=== PATIENT | female | born 1980 ===

== ENCOUNTER 2025-07-23 13:04 | Inpatient (IN) | payer OTHER ==
[~2025-07-23] VITALS: Ht 162.6 cm; Wt 77.3 kg
[2025-07-23 19:53] VITALS: BP 129/89
[2025-07-23] MEDS ORDERED: Polyethylene Glycol 3350 17 gm PO PRN (20:35)
[2025-07-23] MEDS ORDERED: Ondansetron 4 MG SoluTab MM PRN (20:35)
[2025-07-23] MEDS ORDERED: Aluminum Hydroxide 320MG/5ML 473 ML PO PRN (20:40)
[2025-07-23 22:25] VITALS: BP 129/89
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
[2025-07-23] MEDS ORDERED: CEPH500 PO (23:11)
[2025-07-23] MEDS ORDERED: PYRI60 PO (23:11)
[2025-07-23] MEDS ORDERED: PROG100 PO (23:17)
[2025-07-23] MEDS ORDERED: CLIMARA1 EACH TOP (23:17)
--- NOTE | 2025-07-24 04:08 | NUR ---
END OF SHIFT UPDATE ASSUMED CARE OF PT AT 2330. NO ACUTE CHANGES. PT HAS REMAINED IN BED THROUGHOUT THE NIGHT. Q15 MINUTE CHECKS TO CONTINUE PER PT SAFETY.
[2025-07-24 08:00] LABS: CHOL/HDL RATIO 3.2; Cholesterol 173 mg/dL (50-200); HDL Cholesterol 54 mg/dL (>39); LDL/HDL RATIO 1.6; Low Density Lipoprotein Chol 84 mg/dL (0-110); Triglycerides 175 mg/dL (30-160); Very Low Density Lipoprot Chol 35 mg/dL (6-32)
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
[2025-07-24] MEDS ORDERED: Multivitamins 1 Tab PO SCH (09:00)
[2025-07-24 09:26] VITALS: BP 132/81
[2025-07-24] MEDS ORDERED: Estradiol 0.025 MG/24 Patch TOP SCH (18:00)
--- NOTE | 2025-07-24 18:14 | NUR ---
Summary- Patient denies HI,SI, hallucination. She does have low anxiety and depression. A medical consult was called to evaluate the patient. Medical providers came to U to evaluate. Hormones estrogen and progesterone starting 07.25.25. See Consult note. Patient is being treated for a UTI. Provider thinks this is likely part of the cause of mental health exacerbation. She is hoping for a short stay. Patient participated in groups and is active on the unit. Patient has been pleasant and cooperative with safe behaviors this shift.
[2025-07-24 19:34] VITALS: BP 115/71
--- NOTE | 2025-07-24 20:15 | NUR ---
ESTRADIOL PATCH PLACED TO RIGHT ABD AREA PER PATIENT REQUEST
--- NOTE | 2025-07-25 04:19 | NUR ---
SHIFT SUMMARY PATIENT UP IN MILIEU VISITING WITH STAFF AND PEERS. DENIES SI, HI, OR AVH. PATIENT VERBALIZED THAT SHE HAD A GOOD DAY TODAY AND APPRECIATED THE GROUP ACTIVITY AND SOCIALIZING WITH OTHERS ON THE UNIT. VERBALIZED THAT SHE IS FEELING READY TO GO HOME AND APPEARS KNOWLEDGEABLE REGARDING HER MEDICATIONS. ESTRADIOL PATCH PLACED TO RIGHT LOWER ABD PER PATIENT REQUEST. AMOXICILLIN STARTED ORDERED. PATIENT REQUEST TRAZODONE AND MELATONIN FOR SLEEP AID TONIGHT. PATIENT APPEARS TO BE SLEEPING WELL T/O NIGHT RESP EVEN AND UNLABORED. CONTINUE TO MONITOR Q15MIN.
[2025-07-25 07:45] LABS: BASOPHILS ABSOLUTE AUTO 0.07 K/mm3 (0.00-0.23); BASOPHILS PERCENT AUTO 1 % (0-2); EOSINOPHILS ABSOLUTE AUTO 0.28 K/mm3 (0.00-0.68); EOSINOPHILS PERCENT AUTO 4 % (0-6); Hematocrit 39.8 % (33.0-51.0); Hemoglobin 13.4 g/dL (11.5-16.0); IMMATURE GRAN ABSOLUTE AUTO 0.02 K/mm3 (0.00-0.10); IMMATURE GRAN PERCENT AUTO 0 % (0-1); LYMPHOCYTES ABSOLUTE AUTO 2.03 K/mm3 (0.84-5.20); LYMPHOCYTES PERCENT AUTO 27 % (21-46); MONOCYTES ABSOLUTE AUTO 0.65 K/mm3 (0.16-1.47); MONOCYTES PERCENT AUTO 9 % (4-13); Mean Corpuscular HGB Conc 33.7 g/dL (31.5-36.5); Mean Corpuscular Volume 95 fL (80-100); NEUTROPHILS ABSOLUTE AUTO 4.37 K/mm3 (1.96-9.15); NEUTROPHILS PERCENT AUTO 59 % (41-73); NRBC ABSOLUTE 0.00 K/mm3 (0.00-0.02); NRBC Auto 0.0 /100 WBC (0.0-0.2); Platelet Count 331 K/mm3 (150-400); RDW Coefficient Variation 12.6 % (11.7-14.2); RDW Standard Deviation 44.5 fL (35.1-46.3)
[2025-07-25 08:03] LABS: Alanine Aminotransfer (ALT/SGP 33.0 U/L (12-78); Albumin, Blood 3.9 g/dL (3.4-5.0); Albumin/Globulin Ratio 1.0 (0.8-1.8); Anion Gap 10.0 mmol/L (3-11); Aspartate Aminotrans (AST/SGOT 16.0 U/L (12-37); Bilirubin, Total 0.4 mg/dL (0.1-1.0); Blood Urea Nitrogen 12.0 mg/dL (8-24); CO2, Blood 25.0 mmol/L (21-32); Calcium, Blood 9.2 mg/dL (8.5-10.1); Chloride, Blood 107.0 mmol/L (98-108); Creatinine, Blood 0.66 mg/dL (0.40-1.00); Globulin, Blood 3.8 g/dL (2.2-4.0); Glucose, Blood 119.0 mg/dL (70-99); Potassium, Blood 3.7 mmol/L (3.5-5.5); Sodium, Blood 138.0 mmol/L (136-145); Total Protein, Blood 7.7 g/dL (6.4-8.2)
[2025-07-25] MEDS ORDERED: Lactobacil 2-S.Thermo-Bifido 1 1 Cap PO SCH (09:00)
[2025-07-25 09:13] VITALS: BP 125/76
--- NOTE | 2025-07-25 12:30 | NUR ---
Patient describes her mood as good to great. She has no anxiety. She states she slept well. She does endorse generalized body aches, and believes they are related to her MG. She also questions if she has RA. Pateint denies SI, HI, and hallucination. She states that she would like more labs, such as a vitamin level and other hormone levels. She said that she has had hematochromatosis, but also that she has been anemic. HGB is good today. Patient has also of writing on her group sheets. She has been dancing in the hallways and singing loudly with headphones on, at times disturbing other peers that are in the same room with her. Patient is redirectable. She is currently with the mh provider and a medical provider just came back to follow up from yesterday.
--- NOTE | 2025-07-25 16:37 | NUR ---
SUMMARY- PLEASE SEE PREVIOUS NOTE EARLIER THIS SHIFT WELL. PATIENT HAS NOT ENDORSED ANY SI, HI, AH,VH. SHE HAS BEEN IN AN ELEVATED MOOD THIS SHIFT. SHE DID REQUEST IMODIUM FOR DIARRHEA AND AND ORDER WAS PLACED. THE PATIENT STARTED A PROBIOTIC TODAY. PATIENT CONTINUES TO BELIEVE THAT HER MH ISSUE WAS DUE TO HER UTI, HOWEVER SHE IS DISPLAYING SOME ACTIONS THAT APPEAR MANIC. DANCING, SINGING LOUDLY DURING GROUP, GROUP SHEET WITH EXCESSIVE WRITING ALL OVER THE SHEET ETC. PATIENT IS WAITING TO TALK WITH THE PROVIDER TOMORROW. SHE WOULD LIKE TO LEAVE EARLIER THAN HER HOLD, HOWEVER SHE IS STILL ON THE HOLD AND THE PROVIDER WILL REVIEW THE NEED DAILY.
--- NOTE | 2025-07-25 17:17 | NUR ---
PRE-COMMITTMENT MANNEQUIN COLORING ARTIST [facility] [phone] OFFICE [phone] FAX [phone]
[2025-07-25 19:42] VITALS: BP 150/73
--- NOTE | 2025-07-26 03:40 | NUR ---
SHIFT SUMMARY PATIENT UP IN MILIEU VISITING WITH STAFF AND PEERS. AT TIMES PACING IN UMANZOR LISTENING TO HEADPHONES. VERBALIZED THAT SHE IS FEELING "STABLE" DENIES SI, HI, OR AVH. PATIENT CONTINUES TO HAVE LOOSE BROWN STOOL, SECOND DOSE OF IMODIUM GIVEN WITH GOOD RESULTS. PATIENT REQUEST TRAZODONE AND MELATONIN TO HELP HER SLEEP TONIGHT. PATIENT AWAKE AT 0100 RESTLESS IN HER ROOM. AT 0200 CONTINUES TO BE RESTLESS GIVING SELF A SPONGE BATH, C/O GENERALIZED PAIN TYLENOL AND SECOND TRAZODONE GIVEN. 0320 PATIENT UP TO NURSES DESK C/O FEELING NOSE IS STUFF AND RESTLESS HYDROXYZINE GIVEN. PATIENT NOW RESTING QUIETLY IN BED. CONTINUE TO MONITOR Q15MIN
[2025-07-26 09:24] VITALS: BP 133/76
--- NOTE | 2025-07-26 09:56 | NUR ---
Patient is not having SI, HI, A/VH. Patient appears to be showing symptoms of sridhar, rapid excessive speech and busyness. There have been no adverse advents so far this shift. transfering care to Kayce JENSEN at this time.
--- NOTE | 2025-07-26 11:56 | NUR ---
SPOKE TO PT ABOUT MEDICATIONS, PT PREFERS TO WORK WITH HER ESTABLISHED PROVIDERS TO GET HER HORMONAL LEVELS CORRECTED, SHE WANTS TO COMPLETE HER ANTIBIOTICS AND THEN SHE WILL CONSIDER MEDICATION FOR MOOD. SHE PREFERS TO DO THIS SLOWLY AND AT THE DISCRETION OF THE PROVIDERS SHE ALREADY SEES. PT IS MAKING SOME LIFESTYLE CHANGES WELL OTHER LIFESTYLE DECISIONS. SHE REPORTS SHE IS WELL ESTABLISHED WITH HER COUNSELOR AND WILL BE SEEING THEM WEEKLY, SHE HAS A STRONG SUPPORT SYSTEM WITH PEERS, FRIENDS AND FAMILY. SHE ADAMANTLY DENIES ANY SI/HI, DOES NOT APPEAR TO BE RESPONDING TO INTERNAL STIMULI.
--- NOTE | 2025-07-26 17:27 | NUR ---
EXTENSIVE EDUCATION PROVIDED TO PATIENT REGARDING MENTAL HEALTH DX AND STIGMA. EDUCATED ON BIPOLAR SYMPTOMS AND MEDICATIONS. SHE HAS AGREED TO A TRIAL OF LITHIUM
--- NOTE | 2025-07-26 18:00 | NUR ---
ASSUMED PT CARE @1500 FROM NAZIA JENSEN. NO CLINICAL CHANGES NOTED
[2025-07-26 19:19] VITALS: BP 127/76
--- NOTE | 2025-07-27 04:22 | NUR ---
SHIFT SUMMARY: PATIENT WAS IN THE MILIEU AT THE BEGINNING OF THE SHIFT, INTERACTING PLEASANTLY WITH STAFF AND PEERS. SHE WAS ABLE TO ANSWER PLATFORM SOFTWARE ENGINEER QUESTIONS IN A LOGICAL AND LINEAR MANNER. SHE STATED THAT SHE HAS "NEVER BEEN SUICIDAL", AND HAS NO THOUGHTS OF SELF HARMING OR ANY A/V/T HALLUCINATIONS. SHE STATED, "THAT'S NOT REALLY WHY I'M HERE. I JUST SORT OF IMPLODED AND WAS WHIRLING AROUND, FALLING APART." SHE STATED, "IT'S GREAT HERE. I'M LEARNING SO MUCH. I REALLY ENJOY THE GROUPS." SHE PARTICIPATED IN SNACK AND WRAP UP GROUP AT 2030 IN THE DINING AREA, AND WAS COMPLIANT WITH EVENING MEDICATIONS. SHE REQUESTED TRAZODONE AND MELATONIN FOR SLEEP, WHICH WERE GIVEN, WITH DR PERMISSION. SHE GOT UP AT 0120 AND REQUESTED TYLENOL FOR BACK PAIN THAT RADIATED TO HIPS AND LEGS, WHICH WAS EFFECTIVE. SHE ALSO REQUESTED VISTARIL FOR ANXIETY AND "SPINNING THOUGHTS" WHICH WAS EFFECTIVE. SHE WENT BACK TO BED FOR A COUPLE OF HOURS BUT WAS UP FOR GOOD BY THREE. SHE WAS IN THE HALLWAY READING AND WRITING IN HER JOURNAL, BUT BECAME A LITTLE LOUD FOR NIGHTTIME, SO SAT IN THE SENSORY ROOM WITH THE HEADPHONES. SHE WAS PLEASANT AND ABLE TO MAKE NEEDS KNOWN. SHE WAS INTERESTED IN THE LITERATURE PROVIDED REGARDING HER NEW MEDICATION, LITHIUM, AND THE POSSIBLE WAYS IT COULD HELP HER. SHE STATED THAT SHE WOULD "JOURNAL WHAT I WANT TO TELL THE DOCTOR". CONTINUING TO MONITOR FOR SAFETY WITH Q15 MINUTE CHECKS.
[2025-07-27 08:38] VITALS: BP 139/81
--- NOTE | 2025-07-27 14:06 | NUR ---
SHIFT ASSESSMENT: PT DENIED SI, HI AND AVH. PT REPORTED ANXIETY 4/10w AND BACK PAIN 6/10w. HER MOOD WAS DESCRIBED , "GOOD...IN THE MIDDLE." PT CAN BE INTRUSIVE IN CONVERSATION, SHE VERBALIZES AT GREAT LENGTH ABOUT HER ISSUES. SHE IS ACTIVE IN GROUPS AND THE PT MILIEU. PT IS PLEASANT THO AND COOPERATIVE WITH CARE.
--- NOTE | 2025-07-27 18:04 | NUR ---
PT RECEIVED ZOFRAN 4MG AT 0715 FOR NAUSEA, IT WAS EFFECTIVE. SHE WAS GIVEN ADVIL 600MG AT 0928 FOR 6/10 PAIN AND THEN TYLENOL 650MG AT 1451 THEY WERE EFFECTIVE. PT HAS BEEN ACTIVE IN THE PT MILIEU AND HAS ATTENDED GROUPS.
[2025-07-27 19:24] VITALS: BP 128/74
--- NOTE | 2025-07-28 05:49 | NUR ---
SHIFT SUMMARY Pt is A&O, calm, cooperative, eye contact is appropriate. Pt states her mood is "decompression from my visit with ," affect elevated. Pt denies SI, HI, and hallucinations. Pt is hyperverbal, giving long, drawn out answers to simple questions and displaying tangential thinking. Pt requested PRN trazodone and melatonin for sleep with her HS medications and retired to her room at 2130. At about 0220 pt approached the nurse station and requested additional trazodone for sleep, hydroxyzine for MASS score 3, and APAP for bilateral leg pain 4/10w. Pt returned to her room after receiving her PRNs. Pt was back up to the nurse station about 0400 and requested to sit in the sensory room to read. Staff continues to monitor q15m for safety and wellness.
[2025-07-28 09:18] VITALS: BP 124/66
--- NOTE | 2025-07-28 17:02 | NUR ---
SHIFT SUMMARY PT A/O X4; PLEASANT AND COOPERATIVE WITH CARE. SHE DENIES SI, HI, AND HALLUCINATIONS. HER AFFECT IS ELEVATED AND HER SPEECH IS SOMEWHAT TANGENTIAL. PT SEEMS UNCOMFORTABLE WITH BIPOLAR DIAGNOSIS AND REQUESTED INFORMATION ON AUTISM AND ADHD. PT ALSO REPORTED SINUS CONGESTION FROM ALLERGIES AND REQUESTED ALLERGY MEDICATION. PT REPORTS DROWSINESS AFTER ALLERGY MEDICATION AND IS CURRENTLY ASLEEP IN HER ROOM. SHE ATTENDED ALL GROUPS AND MEALS.
[2025-07-28 19:25] VITALS: BP 118/65
--- NOTE | 2025-07-29 06:25 | NUR ---
SHIFT SUMMARY Pt is A&O, calm, cooperative, eye contact is appropriate. Pt states her mood is good, tired, affect constricted. Pt denies SI, HI, and hallucinations. Pt is hyperverbal, tangential, needy. Pt had generalized pain earlier in the day, which had resolved at time of assessment, but stated that she would like to take PRN ibuprofen before bed. Pt also requested PRN trazodone and melatonin for sleep. Staff continues to monitor q15m for safety and wellness.
--- NOTE | 2025-07-29 18:13 | NUR ---
SHIFT SUMMARY PT A/O X4; PLEASANT AND COOPERATIVE WITH CARE. SHE DENIES SI, HI, HALLUCINATIONS. HER AFFECT IS CALMER TODAY AND HER SPEECH IS LESS PRESSURED. SHE HAS ALSO HAD SOME BETTER BOUNDARIES TODAY. SHE DID TRY TO EXERCISE IN THE UMANZOR BUT NOT IN EXCESS OR AT INAPPROPRIATE TIMES. SHE IS SOMEWHAT CONCERNED ABOUT DISCHARGE AND WANTS TO MAYBE GO TO "[facility]". ADVISED PT TO SPEAK WITH DC TELEVISION INSPECTOR IN THE AM.
[2025-07-29 20:43] VITALS: BP 131/83
--- NOTE | 2025-07-30 05:57 | NUR ---
SHIFT SUMMARY Pt is A&O, calm, cooperative, eye contact is appropriate. Pt states her mood is good, affect is constricted. Pt denies SI, HI, and hallucinations. Pt reported bilateral hip pain 4/10w and requested PRN ibuprofen before retiring to bed. Pt also requested PRN trazodone and melatonin for sleep. Staff continues to monitor q15m for safety and wellness.
[2025-07-30 09:36] VITALS: BP 122/57
--- NOTE | 2025-07-30 18:16 | NUR ---
SHIFT SUMMARY PT WAS PLEASANT AND ENDORSED FEELINGS OF EXCITEMENT TO POSSIBLY D/C SOON. SHE DENIES SI/HI AND ALL HAULLUCINATIONS. SHE SPEAKS HYPERVERBALLY BUT CLEAR. SHE WROTE OVER THE ENTIRE COMMUNITY WORKSEET, NOT ALL THINGS RELATED TO THE QUESTIONS. SHE WAS COOPERATIVE WITH ALL MEDICATIONS. SHE WAS GIVEN ONE IBUPROFEN FOR 6/10 LOW BACK PAIN. SHE ATTENDED GROUPS AND WAS ACTIVE IN THE MILIEU. PT INTERACTED WELL WITH OTHER PATIENTS. SHE CALLED HER THIS AM AND HAD HIM CONTACT HER [facility] AND CANCEL HER APPOINTMENT THAT WAS FOR TODAY.
[2025-07-30 21:03] VITALS: BP 140/79
--- NOTE | 2025-07-31 06:02 | NUR ---
SHIFT SUMMARY Pt is A&O, calm, cooperative, eye contact is appropriate. Pt states her mood is good, affect is euthymic, congruent to report. Pt denies SI, HI, and hallucinations. Pt is looking forward to discharge tomorrow afternoon and looking forward to getting back to her job. 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 Pt reported bilateral hip pain 4/10w and requested PRN ibuprofen before retiring to bed. Pt also requested PRN trazodone and melatonin for sleep. Staff continues to monitor q15m for safety and wellness.
[2025-07-31 07:27] VITALS: BP 109/63
[2025-07-31 07:55] LABS: Lithium 0.37 mmol/L (0.60-1.20)
--- NOTE | 2025-07-31 11:27 | NUR ---
IMPORTANT DISCHARGE INFORMATION PATIENT TO BE DISCHARGED TODAY. HER SPOUSE IS COMING (KAEL) TO PICK HER UP AROUND 2PM. HIS PHONE NUMBER IS . ALL PARTIES VERBALIZE AN UNDERSTANDING. PATIENT HAS FOLLOW UP WITH DR. MAGAÑA ON 08/02/25 AT 1:30PM FOLLOW UP WITH [facility]. PHARMACY: [facility] FAX
[2025-07-31] MEDS ORDERED: Lithium Carbon450 MG PO (12:32)
--- NOTE | 2025-07-31 14:12 | NUR ---
NURSING DISCHARGE NOTE PT AA&0 TO PERSON, PLACE, TIME, AND SITUATION. SHE REPORTS MOOD EXCITED TO GO HOME. SPEECH IS PRESSURED AND IT IS HARD TO KEEP HER ON TOPIC. PT EDUCATED THAT LITHIUM IS NOT AT A THERAPUTIC LEVEL AND THAT SHE WILL NEED TO MAKE HER FOLLOW UP APPT FOR NEW LEVEL AND TITRATION. SHE VERBALIZED UNDERSTANDING. UPCOMING APPTS, DISCHARGE MEDICATIONS, AND HOW TO ACCESS MEDICAL RECORDS REVIEWED.. SHE DENIED ANY QUESTIONS OR CONCERNS AT THIS TIME. PT BELONGING RETURNED AND PT DISCHARGED TO HOME @0879
--- NOTE | 2025-07-31 14:26 | NUR ---
PATIENT BELONGINGS RETURNED AND SIGNED FOR
== END 2025-07-31 14:27 | disposition home or self-care (01) | DRG 885 ==
LOC: BHU 13:04
PROVIDERS: ADMIT Psychiatry & Neurology Psychiatry
DX: F31.9 Bipolar disorder, unspecified (principal); N39.0 Urinary tract infection, site not specified; G70.00 Myasthenia gravis without (acute) exacerbation; N95.9 Unspecified menopausal and perimenopausal disorder; Z90.89 Acquired absence of other organs; Z79.899 Other long term (current) drug therapy; Z88.8 Allergy status to other drugs, medicaments and biological substances
CPT/HCPCS: 36415; 80053; 80061; 80178; 83036; 85025; A9270

== ENCOUNTER 2025-10-22 17:07 | Inpatient (IN) | payer OTHER ==
[~2025-10-22 17:07] MED LIST: CEPH500 PO; CLIMARA1 EACH TOP; Lithium Carbon450 MG PO; PROG100 PO; PYRI60 PO
[2025-10-22] MEDS ORDERED: FLU VACC TS2025-26(6MOS UP)/PF 45 MCG/0.5 ML SYRINGE IM ONE (23:00)
[2025-10-22] MEDS ORDERED: Ondansetron 4 MG SoluTab MM PRN (23:00)
[2025-10-22] MEDS ORDERED: FLU VACC TS2025-26(6MOS UP)/PF 45 MCG/0.5 ML SYRINGE IM SCH (23:00)
[2025-10-22] MEDS ORDERED: Aluminum Hydroxide 320MG/5ML 473 ML PO PRN (23:00)
[2025-10-22] MEDS ORDERED: DiphenhydrAMINE HCl 50 MG/ML 1ML Vial IM PRN ×2 (23:00→23:10)
[2025-10-22] MEDS ORDERED: Polyethylene Glycol 3350 17 gm PO PRN (23:00)
[2025-10-22] MEDS ORDERED: LORazepam 2 MG/ML 1ML Injection IM PRN (23:05)
[2025-10-22] MEDS ORDERED: Haloperidol Lactate Inj. 5 MG/ML Injection IM PRN (23:10)
--- NOTE | 2025-10-22 23:45 | NUR ---
ADMISSION SUMMARY Pt arrived at [facility] at 2105 from [facility], admitted for psychosis. Pt has Hx of bipolar DO and was brought in by [facility] with possible manic episode after not taking her meds. She told staff that she was not taking her meds because she did not like the way they made her feel. During the admission interview, pt was very somnolent. Pt s speech is disorganize, tangential, with latency in response, and pt had a difficult time staying on task during the interview. Pt denies SI, HI, and hallucinations. She endorsed pain in her back, but did not rate. Pt denies any other medical issues. Pt statements seemed to contradict information contained in the packet form the SWer. Documentation indicated that she lives with her , who contacted the crisis team, but pt stated to this RN that she is . Pt made several bizarre statements, stating that she was aware of her heart beat and sensitive to sensory input. She also stated that she doesn t know how this hospital stay will help her accomplish her goals. Pt was given a snack during the interview. Pt was offered influenza vaccine, but really would not directly answer if she wanted it. Perhaps staff can revisit the vaccine once she clears a bit. Pt was oriented to unit and shown to her room at about 2230. Pt is on q15m safety checks per unit protocol.
--- NOTE | 2025-10-23 05:13 | NUR ---
Please refer to previous note for admission and orientation information. After admission interview, pt was shown to her room at about 2230. She remained in her room for the remainder of the shift. Staff continues to monitor q15m for safety and wellness.
[2025-10-23] MEDS ORDERED: LITH300C PO ×2 (08:01→08:03)
[2025-10-23] MEDS ORDERED: QUET100 PO (08:07)
[2025-10-23 08:55] VITALS: BP 124/76
[2025-10-23] MEDS ORDERED: Multivitamins 1 Tab PO SCH (09:00)
--- NOTE | 2025-10-23 17:08 | NUR ---
SHIFT SUMMARY PT DENIES SI/HI AND ANY HAULLUCINATIONS. SHE DOES APPEAR TO POSSIBLY BE RESPONDING TO SOME INTERNAL STIMULI. SHE IS EUTHYMIC AND ACTIVE IN THE MILIEU. SHE DANCED FREQUENTLY THIS SHIFT. SHE WAS COOPERATIVE WITH MEDICATIONS. NO PRN MEDS WERE GIVEN THIS SHIFT. SHE IS TANGENTIAL, BUT IS ABLE TO STATE HER NEEDS. PT ATTENDED GROUPS AND MEALS. SHE DID NOT HAVE ANY ACUTE BEHAVIORS THIS SHIFT.
--- NOTE | 2025-10-23 19:10 | NUR ---
PT PACING IN HALLWAYS, RUBBING ALL NOTICES HANGING ON WEBSTER FROM TOP TO BOTTOM, TAPPING WORDS REPEATEDLY, READING OUT LOUD IN GERMAN.
[2025-10-23 20:50] VITALS: BP 109/64
[2025-10-23] MEDS ORDERED: Lactobacil 2-S.Thermo-Bifido 1 1 Cap PO SCH (21:00)
--- NOTE | 2025-10-24 02:09 | NUR ---
Assumed care at 2345. Patient has been sleeping soundly with even respirations. Will continue close monoitoring every 15 minutes for comfort and safety per unit protocol
--- NOTE | 2025-10-24 05:00 | NUR ---
patient has slept well overnight. her sleep time until now has been 7 hours. She is now up and pacing the halls. will continue oniitoring eery 15 minutes for comfort and safety per unit protocol.
[2025-10-24 08:05] VITALS: BP 126/74
--- NOTE | 2025-10-24 15:11 | NUR ---
"SPiritual Care | Pt. request Meet with Pt. in a [facility] visitor room. Pt. is pleasant. Pt. opened up and shared at length about many aspects of her life. Pt. verbalized concern about her marriage and that she feels that it should end. Listen with empathy and a calming presence. As life review continued, the Pt. spoke of her desires to serve others on a mission field. Pt. displays evidence of being genuinely conflicted over her current life and her dreams. With pastoral care and theraputic listening the Pt. displayed evidence of trust. Prayed with the Pt. Will remain available to the Pt."
--- NOTE | 2025-10-24 17:37 | NUR ---
SHIFT SUMMARY NO ACUTE EVENTS TODAY. PT DENIES SI, HI, AVTH. PARTICIPATED IN GROUPS, MEALS, AND HAS BEEN INTERACTING W/ STAFF. FOR QUARTER OF SHIFT PT HAS BEEN SLEEPING/RESTING QUIETLY IN ROOM. EDUCATION GIVEN ON DEPAKOTE AND RISKS OF USING IT IF PT WOULD ATTEMPT TO HAVE A BABY. TOLD PT TO DISCUSS WITH DOCTOR WHEN THE TIME COMES.
[2025-10-24 20:32] VITALS: BP 121/74
--- NOTE | 2025-10-25 04:27 | NUR ---
SHIFT CHANGE: ASSUMED CARE OF PT AT 2330. PT HAS BEEN SLEEPING SINCE GOING TO BED. NO ISSUES OCCURED. RESPIRATIONS CONFIRMED WITH RISE AND FALL OF CHEST. MONITORED Q 15 MINS FOR SAFETY AND WELLNESS.
[2025-10-25 08:15] LABS: CHOL/HDL RATIO 2.7; Cholesterol 123 mg/dL (50-200); HDL Cholesterol 46 mg/dL (>39); LDL/HDL RATIO 1.2; Low Density Lipoprotein Chol 53 mg/dL (0-110); Triglycerides 120 mg/dL (30-160); Very Low Density Lipoprot Chol 24 mg/dL (6-32)
[2025-10-25 08:20] VITALS: BP 115/69
--- NOTE | 2025-10-25 17:25 | NUR ---
SHIFT SUMMARY DENIES SI, HI, AVTH. NO ACUTE EVENTS, PT ATTENDED GROUPS/MEALS, AND IS CURRENTLY READING A BOOK IN THE GROUP ROOM. PT CONTINUES TO BE DISTRACTED AND INTERMITTENTLY CIRCUMSTANTIAL, BUT IS ABLE TO BE REORIENTED.
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
--- NOTE | 2025-10-26 04:38 | NUR ---
SHIFT SUMMARY: ASSUMED CARE OF PT AT 2330. PT HAS BEEN SLEEPING WELL. HAS BEEN MONITORED Q 15 MINS. REPORT TAKEN FROM KLARISSA JENSEN. WILL CONTINUE TO MONITOR.
[2025-10-26 09:15] VITALS: BP 121/77
--- NOTE | 2025-10-26 18:10 | NUR ---
SHIFT SUMMARY: PT IS ALERT AND COOPERATIVE WITH CARE. SHE DENIES SI, HI AND AVH. SHE HAS A DEPRESSED, SAD AFFECT, APPROPRIATE EYE CONTACT AND APPEARS WELL GROOMED. SHE WAS COMPLIANT WITH MEDICATIONS AND ENGAGED IN CONVERSATION. SHE IS FOCUSED ON HER LIVING SITUATION AND . STATES THAT SHE THINKS SHE NEEDS A NEW LIVING SITUATION. STATES "IT NEEDS TO BE REVAMPED". PT ATTENDED GROUPS AND WAS PRESENT FOR MEALS. SHE SPENT TIME IN THE DAY ROOM WATCHING TV WITH STAFF AND PEERS. PT MONITORED WITH Q 15 MIN CHECKS FOR SAFETY PER UNIT PROTOCOL.
[2025-10-26 20:26] VITALS: BP 134/73
--- NOTE | 2025-10-27 05:21 | NUR ---
SHIFT SUMMARY 45 YEAR-OLD FEMALE PRESENTS WELL GROOMED. SHE IS ALERT AND ORIENTED. SHE SPEAKS IN A CLEAR VOICE AND IN AN APPROPRIATE VOLUME. SHE IS ABLE TO MAKE AND KEEP EYE CONTACT DURING CONVERSATIONS. AT THE TIME OF HER ASSESSMENT, SHE DESCRIBED HER MOOD "KIND OF CHILL". SHE ALSO DENIED SI, HI, AND AVTH AT THAT TIME. SHE CONTINUES TO BE FIXATED ON HER BEING UP TO SOMETHING FISHY . SHE ATTENDED SNACK AND DAY ROOM. SHE WAS COMPLIANT WITH CARE AND MEDICATION ADMINISTRATION. SHE DID NOT REQUEST ANY MEDICATIONS. SHE CONTINUES TO BE MONITORED EVERY 15 MINUTES FOR WELLNESS AND SAFETY.
--- NOTE | 2025-10-27 05:29 | NUR ---
PATIENT RECEIVED THE FOLLOWING PRN MEDICATIONS DURING RADIOLOGY PHYSICIAN ASSISTANT: AMPHOJEL 15ML AT 0517 FOR INDIGESTION
[2025-10-27 09:01] VITALS: BP 120/78
--- NOTE | 2025-10-27 16:57 | NUR ---
SHIFT SUMMARY: PT IS ALERT AND COOPERATIVE WITH CARE. SHE DENIES SI, HI AND AVH. STATES THAT SHE SLEPT OK, REPORTS WAKING UP ONCE BUT WAS ABLE TO GO BACK TO SLEEP. SHE APPEARS DISHEVELED, HAS A DEPRESSED AFFECT AND APPROPRIATE EYE CONTACT. PT SPENT MUCH OF THE MORNING RESTING IN HER ROOM. IN THE AFTERNOON SHE WAS PRESENT ON THE UNIT. SHE HAD OUTSIDE ACTIVITY TIME IN THE COURT[place] AND WATCHED TV IN THE DAY ROOM WITH STAFF AND PEERS. PT MONITORED WITH Q 15 MIN CHECKS FOR SAFETY PER UNIT PROTOCOL.
[2025-10-27 20:38] VITALS: BP 148/71
--- NOTE | 2025-10-28 05:01 | NUR ---
SHIFT SUMMARY 45 YEAR-OLD FEMALE PRESENTS WELL GROOMED. SHE IS ALERT AND ORIENTED. SHE SPEAKS IN A CLEAR VOICE AND IN AN APPROPRIATE VOLUME. SHE IS ABLE TO MAKE AND KEEP EYE CONTACT DURING CONVERSATIONS. AT THE TIME OF HER ASSESSMENT, SHE DESCRIBED HER MOOD "MID". SHE ALSO DENIED SI, HI, AND AVTH AT THAT TIME. SHE CONTINUES TO BE FIXATED ON HER AND RESTARTING HER LIFE. SHE ATTENDED SNACK AND DAY ROOM. SHE WAS COMPLIANT WITH CARE AND MEDICATION ADMINISTRATION. SHE DID NOT REQUEST ANY MEDICATIONS. SHE CONTINUES TO BE MONITORED EVERY 15 MINUTES FOR WELLNESS AND SAFETY.
[2025-10-28 09:12] VITALS: BP 143/86
--- NOTE | 2025-10-28 10:55 | NUR ---
PT EXHIBITING DISRUPTIVE BEHAVIORS DURING GROUP. GROUP IN STORE MARKETING REPRESENTATIVE REQUESTED THAT SHE LEAVE HEADPHONES, JOURNAL, AND BOOKS OUT OF GROUP ROOM. SHE DID NOT. SHE WOULD NOT SIT DOWN, SHE WAS REPORTING THAT SHE WAS DIZZY AND BRACING WEBSTER. THIS RN ASKED PT TO LEAVE ROOM AND LAY DOWN. SHE REFUSED. SHE WAS ASKED SEVERAL TIMES TO LAY DOWN FOR HER SAFETY. SHE REFUSED. SHE STATED THAT SHE NEEDED TIME TO TRANSITION, SEVERAL MINUTES WHERE GIVEN. SHE STILL REFUSED TO LEAVE. SECURITY WAS CALLED AT THAT TIME SHE LEFT THE ROOM. THIS RN NOTED THAT SHE HAD CRAYONS AND OTHER ITEMS FROM GROUP ROOM. RN REQUESTED THEM AND SHE INITIALLY REFUSED BUT DID RETURN ITEMS. SHE RETURNED TO HER ROOM AND IS NOW LAYING DOWN
--- NOTE | 2025-10-28 17:31 | NUR ---
SHIFT SUMMARY: PT IS ALERT AND ORIENTED. SHE APPEARED TO STRUGGLE WITH LIMITS AND EXPECTATIONS EARLY IN THE DAY, SEE NOTE PLACED BY JUDITH JENSEN. PT SPENT TIME IN HER ROOM RESTING ON HER BED AND IN THE DAY ROOM WATCHING TV. SHE REQUESTED TO USE THE ADA BATHROOM WHILE HER ROOMMATE WAS TAKING A SHOWER WHICH SHE WAS ALLOWED. SHE STATED THAT SHE NEEDED A ATTENDS WHICH WAS PROVIDED AND EDUCATED ON NEED TO DISPOSE OF THE USED ONE. AFTER USING THE BATHROOM PT BECAME FRUSTRATED WHEN REGIONAL FORESTER ASKED HER TO DISPOSE OF THE ATTENDS. SHE BECAME INCREASINGLY AGGITATED, RAISING HER VOICE AND NOT ALLOWING STAFF TO TALK. PT EVENTUALLY CALMED AND REDIRECTED. SHE ATTENDED MEALS AND USED THE PHONE IN THE EVENING. MONITORED WITH Q 15 MIN CHECKS FOR SAFETY PER UNIT PROTOCOL.
[2025-10-28 20:08] VITALS: BP 145/89
--- NOTE | 2025-10-29 05:40 | NUR ---
SHIFT SUMMARY 45 YEAR-OLD FEMALE PRESENTS WELL GROOMED. SHE IS ALERT AND ORIENTED. SHE SPEAKS IN A CLEAR VOICE AND IN AN APPROPRIATE VOLUME. SHE IS ABLE TO MAKE AND KEEP EYE CONTACT DURING CONVERSATIONS. AT THE TIME OF HER ASSESSMENT, SHE DESCRIBED HER MOOD "KIND OF ANNOYED". SHE ALSO DENIED SI, HI, AND AVTH AT THAT TIME. SHE CONTINUES TO BE FIXATED ON HER AND RESTARTING HER LIFE. SHE ATTENDED SNACK AND DAY ROOM. SHE WAS COMPLIANT WITH CARE AND MEDICATION ADMINISTRATION. SHE RECEIVED THE FOLLOWING PRN MEDICATIONS: VISTARIL 50MG FOR ANXIETY AT 1935 (MASS=3). SHE CONTINUES TO BE MONITORED EVERY 15 MINUTES FOR WELLNESS AND SAFETY.
--- NOTE | 2025-10-29 05:41 | NUR ---
PRN NOTE PATIENT RECEIVED THE FOLLOWING PRN MEDICATIONS DURING DISASSEMBLER: VISTARIL 50MG FOR ANXIETY AT 1935 (MASS=3)
[2025-10-29] MEDS ORDERED: Estradiol 0.025 MG/24 Patch TOP SCH (09:00)
--- NOTE | 2025-10-29 18:04 | NUR ---
SHIFT SUMMARY PT WOKE EASILY FOR BREAKFAST THIS SHIFT, SHE STATED SHE SLEPT VERY WELL BUT FEELS LIKE SHE IS OVER MEDICATED. SHE APPEARS TO BE SLEEPY. PT IS ALERT AND ORIENTED WITH GOOD EYE CONTAC, SPEECH IS CLEAR WITH NORMAL TONE AND PRESENTS WITH DECENT APPEARANCE. SHE HAS DENIED SI/HI/AVH. PT REFUSED HER MORNING DOSE OF DEPAKOTE. SHE HAS BEEN INVOLVED WITH THE [facility] ALL DAY. PT HAS RECEIVED Q15 MIN VISUAL SAFETY CHECKS THROUGHOUT THIS
[2025-10-29 20:54] VITALS: BP 132/84
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
--- NOTE | 2025-10-30 00:35 | NUR ---
ASSUMPTION OF CARE ASSUMED CARE OF PATIENT FROM CAMILA CYR AT 2340. SHE IS CURRENTLY RESTING QUIETLY IN HER BED. NO SIGNS OF ACUTE DISTRESS NOTED. SHE DID NOT RECEIVE ANY PRN MEDICATIONS PRIOR TO MY ASSUMING CARE.
--- NOTE | 2025-10-30 04:54 | NUR ---
END OF SHIFT SUMMARY PATIENT HAS SLEPT SINCE THIS NUTRITIONAL SERVICES DIRECTOR ASSUMED CARE AT 2345. NO PRN MEDICATIONS WERE UTILIZED. PATIENT DOES NOT SEEM TO BE IN ANY ACUTE DISTRESS. THEY CONTINUES TO BE MONITORED EVERY 15 MINUTES FOR WELLNESS AND SAFETY.
[2025-10-30 08:09] VITALS: BP 122/75
[2025-10-30] MEDS ORDERED: DEPAKOTE ER250 M2 PO (08:47)
--- NOTE | 2025-10-30 09:23 | NUR ---
IMPORTANT DISCHARGE INFORMATION PATIENT TO BE DISCHARGED TODAY. HER SPOUSE (KAEL) WILL BE COMING TO PICK HER UP BETWEEN 3-4PM. HIS PHONE NUMBER IS . ALL PARTIES VERBALIZE AN UNDERSTANDING. PATIENT HAS FOLLOW UP APPOINTMENT WITH SR. ARCHULETA ON 11/01/25 AT 10:15AM. MENTAL HEALTH REFERRAL PLACED WITH CLINIC. FOLLOW UP NEEDED WITH [facility] OPEN ACCESS. PHARMACY: [facility] [place]
--- NOTE | 2025-10-30 12:24 | NUR ---
MID SHIFT SUMMARY PT A/O X4; PLEASANT AND COOPERATIVE WITH CARE. DENIES SI, HI, AVTH. SHE SAYS HER MOOD IS GOOD OVERALL, BUT SPEECH IS TANGENTIAL. PT TO DC HOME TODAY AND HER IS TO PICK HER UP BETWEEN [phone]. DEPAKOTE CHANGED TO 250 MG BID DUE TO BEING SEDATED ON THE HIGHER DOSE.
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
--- NOTE | 2025-10-30 16:06 | NUR ---
Dishcharge 1600 The patient went home today, via transport with . All belonings were returned and paperwork was reviewed and signed. The patient was informed up upcoming appointments with her own providers. The patient is not suicidal and has displayed safe behaviors this shift.
== END 2025-10-30 16:00 | disposition home or self-care (01) | DRG 885 ==
LOC: BHU 17:07
PROVIDERS: ADMIT Psychiatry & Neurology Psychiatry
DX: F31.10 Bipolar disorder, current episode manic without psychotic features, unspecified (principal); G70.00 Myasthenia gravis without (acute) exacerbation; Z98.890 Other specified postprocedural states; Z88.8 Allergy status to other drugs, medicaments and biological substances; Z79.899 Other long term (current) drug therapy; Z79.1 Long term (current) use of non-steroidal anti-inflammatories (NSAID); Z28.21 Immunization not carried out because of patient refusal
CPT/HCPCS: 36415; 80061; 83036; A9270